=== PATIENT | female | born 1985 ===

== ENCOUNTER 2018-11-26 21:33 | Emergency (ER) | payer BC ==
[2018-11-26] MEDS ORDERED: Sodium Chloride 0.9% 1,000 ML IV ONE (22:15)
--- NOTE | 2018-11-26 22:15 | C.PDOC ---
History Of Present Illness 33 year old female, , 13 weeks presents to the ED c/o vaginal spotting. Patient reports her bleeding worsened tonight which prompted the visit to the ED. Patient denies fever, chills, nausea, vomit, diarrhea, back pain. Time Seen by Provider: 11/26/18 22:14 Chief Complaint (Nursing): Female Genitourinary History Per: Patient History/Exam Limitations: no limitations Onset/Duration Of Symptoms: Days Current Symptoms Are (Timing): Still Present Quality Of Discomfort: Cramping Associated Symptoms: denies: Nausea, Vomiting, Diarrhea, Urinary Symptoms Recent travel outside of the [place]: No Additional History Per: Patient Abnormal Vaginal Bleeding: Yes Last Menstral Period: 08/21/18 : 1 Para: 2 Past Medical History Reviewed: Historical Data, Nursing Documentation, Vital Signs Vital Signs: Last Vital Signs Temp 98.2 F 11/26/18 21:39 Pulse 71 11/26/18 21:39 Resp 16 11/26/18 21:39 BP 126/84 11/26/18 21:39 Pulse Ox 98 11/26/18 21:39 - Medical History PMH: No Chronic Diseases Surgical History: No Surg Hx Family History: States: Unknown Family Hx - Social History Hx Alcohol Use: No Hx Substance Use: No - Immunization History Hx Tetanus Toxoid Vaccination: No Hx Influenza Vaccination: No Hx Pneumococcal Vaccination: No Review Of Systems Constitutional: Negative for: Fever, Chills Cardiovascular: Negative for: Chest Pain Respiratory: Negative for: Shortness of Breath Gastrointestinal: Positive for: Abdominal Pain. Negative for: Nausea, Vomiting, Diarrhea Genitourinary: Positive for: Vaginal Bleeding. Negative for: Dysuria Musculoskeletal: Negative for: Back Pain Skin: Negative for: Rash Neurological: Negative for: Weakness, Numbness Physical Exam - Physical Exam Appears: Non-toxic, No Acute Distress Skin: Warm, Dry Head: Normacephalic Eye(s): bilateral: Normal Inspection Neck: Supple Chest: Symmetrical Cardiovascular: Rhythm Regular Respiratory: No Rales, No Rhonchi, No Wheezing Gastrointestinal/Abdominal: Soft, Tenderness (mild suprapubic), No Guarding, No Rebound Back: No CVA Tenderness Extremity: Bilateral: Atraumatic, Normal Color And Temperature, Normal ROM Neurological/Psych: Oriented x3, Normal Speech, Normal Cognition Gait: Steady ED Course And Treatment - Laboratory Results Result Diagrams: 11/26/18 22:28 11/26/18 22:28 O2 Sat by Pulse Oximetry: 98 (ON RA) Pulse Ox Interpretation: Normal - CT Scan/US Pelvic US Other Rad Studies (CT/US): Read By Radiologist, Radiology Report Reviewed CT/US Interpretation: EXAM: US Obstetrical, Complete <14 weeks. CLINICAL HISTORY: 13 weeks , vag bleed. TECHNIQUE: Transvaginal and transabdominal imaging of the maternal pelvis and a <14 week gestation with image documentation. COMPARISON: None provided. FINDINGS: GESTATION: Single live IUP, FHR is 122 BPM. Age is 14 w 1 d. Limited anatomy. Low lying placenta is noted. short term follow up is recommended. UTERUS: Unremarkable. No myometrial mass. CERVIX: Closed. Unremarkable. OVARIES: 1.4 cm right ovarian cyst. Unremarkable otherwise No mass. FREE FLUID: No free fluid. IMPRESSION: Single viable intrauterine . No acute abnormality. Age is 14 w 1 d. Low lying placenta is noted. short term follow up is recommended. . Electronically signed on Nov 27, 2018 12:38:20 AM EST by: Floyd Blackwood M.D., FLORIN Certified By [facility] & [facility]. Fellowship Trained MRI and CT Specialist Progress Note: Plan: - Labs. - IV fluids. - UA. - Pelvic US Disposition Counseled Patient/Family Regarding: Studies Performed, Diagnosis, Need For Followup, Rx Given - Disposition Referrals: Derek Wilcox MD [Staff Provider] - Disposition: HOME/ ROUTINE Disposition Time: 22:15 Condition: FAIR Additional Instructions: Please return if symptoms recur Prescriptions: Nitrofurantoin Macrocrystals [Macrobid] 1 cap PO BID #14 cap Instructions: Threatened Miscarriage (DC), Bleeding With (DC), Urinary Tract Infection, Adult (DC) Forms: [employer] (Chinese) - Clinical Impression Clinical Impression: Threatened , UTI (urinary tract infection) - Scribe Statement The provider has reviewed the documentation as recorded by the Scribe Wojciech Burciaga All medical record entries made by the Scribe were at my direction and personally dictated by me. I have reviewed the chart and agree that the record accurately reflects my personal performance of the history, physical exam, medical decision making, and the department course for this patient. I have also personally directed, reviewed, and agree with the discharge instructions and disposition.
[2018-11-26 22:31] LABS: HEMOGLOBIN 12.7 g/dL (11.0-16.0); MEAN CELL VOLUME 87.3 fL (81.0-99.0); MEAN CORPUSCULAR HEMOGLOBIN 29.7 pg (27.0-31.0); RBC 4.28 Mil/uL (3.80-5.20); WHITE BLOOD COUNT 12.1 K/uL (4.8-10.8)
[2018-11-26 22:32] LABS: BASO # 0.1 K/uL (0.0-0.2); BASO % 0.5 % (0.0-2.0); EOS # 0.2 K/uL (0.0-0.7); EOS % 1.4 % (0.0-4.0); LYMPH # 3.8 K/uL (1.0-4.3); MEAN PLATELET VOLUME 8.3 fL (7.2-11.7); MONO # 0.8 K/uL (0.0-0.8); MONO % 6.5 % (0.0-10.0); NEUT # 7.4 K/uL (1.8-7.0); NEUT % 60.6 % (50.0-75.0); RED CELL DISTRIBUTION WIDTH 13.3 % (11.5-14.5)
[2018-11-26 22:44] LABS: ALB/GLOB RATIO 1.1 (1.0-2.1); ALBUMIN 4.3 g/dL (3.5-5.0); AST/SGOT 17 U/L (14-36); BLOOD UREA NITROGEN 7 mg/dL (7-17); CALCIUM 9.1 mg/dl (8.6-10.4); GFR NON-AFRICAN AMERICAN > 60
[2018-11-26 22:45] LABS: ALT/SGPT < 6 U/L (9-52)
[2018-11-26 22:46] LABS: PROTHROMBIN TIME 10.9 SECONDS (9.7-12.2)
[2018-11-26 23:29] LABS: SQUAMOUS EPITHIAL 6 /hpf (0-5); URINE BACTERIA RARE (<OCC); URINE BILIRUBIN NEGATIVE (NEGATIVE); URINE BLOOD 3+ (NEGATIVE); URINE CLARITY Hazy (Clear); URINE COLOR Yellow (YELLOW); URINE GLUCOSE (UA) NORMAL (Normal); URINE LEUKOCYTE ESTERASE TRACE Leu/uL (Negative); URINE PROTEIN NEGATIVE (NEGATIVE); URINE UROBILINOGEN NORMAL mg/dL (0.2-1.0)
[2018-11-27 00:42] VITALS: BP 99/59; PULSE 67; RESP 14; TEMP 98.4
[2018-11-27 00:44] VITALS: O2SAT 98
--- NOTE | 2018-11-27 17:14 | US ---
Date of service: 11/26/2018 PROCEDURE: OB Pelvic Ultrasound HISTORY: 13 weeks, vag bleed LMP: 08/21/2018 suggesting 13 week 6 day gestation. COMPARISON: None available. FINDINGS: UTERUS: Gestational sac: Single intrauterine gestation. Heart rate: 122 bpm. age (Ultrasound estimated): 14 weeks 1 day, concordant with LMP derived dates. Maite-gestational hemorrhage: None. Date of delivery (Ultrasound estimated) : 05/26/2019. No discrete myometrial lesion is appreciated throughout the visualized uterus. The placenta is posterior but lies 1.3 cm away from the os and is therefore low-lying placenta. Following mean biometry was obtained: Biparietal diameter 2.54 cm correspond to 14 weeks and 3 days. Head circumference 8.82 cm correspond to 14 weeks 0 days. Abdominal circumference 7.64 cm correspond to 14 weeks 1 day. Femur length 1.27 cm correspond 13 weeks 5 days. HC/AC ratio is 1.15 which falls within the normal range. Anatomic survey not performed in this emergent case and should be pursued on elective basis subsequently. CERVIX: Measures 3.3 cm. Long and closed. No cervical abnormality seen. RIGHT OVARY: Measures 2.3 x 1.9 x 2.2 cm. No mass lesion. Normal flow. 1.4 cm corpus luteum cyst identified. LEFT OVARY: Measures 2.5 x 2.4 x 2.3 cm. No solid mass. Normal flow. FREE FLUID: None. OTHER FINDINGS: None. IMPRESSION: Single viable intrauterine gestation is identified in cephalic lie with a posterior low-lying placenta identified 1.3 cm away from the os. Sonographic age is 14 weeks 1 day which is concordant with LMP derived dates. cardiac activity is recorded at 122 beats per minute. biometry as described above. Consider follow-up anatomical survey on elective basis.
== END 2018-11-27 00:58 | disposition home or self-care (01) ==
LOC: C.ER 21:33
DX: O23.41 Unspecified infection of urinary tract in pregnancy, first trimester (principal); O20.0 Threatened abortion; Z3A.13 13 weeks gestation of pregnancy
CPT/HCPCS: 76815; 80053; 81001; 84702; 85025; 85610; 85730; 86850; 86900; 99285; J7030